=== PATIENT | male | born 2000 | race Caucasian/White ===

== ENCOUNTER 2019-05-06 04:59 | Emergency (ER) | payer OTHER ==
[~2019-05-06] VITALS: Ht 188 cm; Wt 68.0 kg
[2019-05-06] MEDS ORDERED: SODIUM CHLORIDE 0.9% 1,000 ML IV ONE (05:33)
[2019-05-06] MEDS ORDERED: BACITRACIN ZINC OINT UDPKT TOP ONE (05:45)
[2019-05-06] MEDS ORDERED: TETANUS, DIPHTHERIA, PERTUSSIS VAC/PF 0.5ML (>7YR OLD) IM ONE (05:45)
[2019-05-06 05:46] LABS: BASOPHILS % 0.6 % (0.0-2.0); HEMATOCRIT. 41.3 % (42.0-52.0); HEMOGLOBIN. 14.5 g/dL (14.0-18.0); LYMPHOCYTES % 9.9 % (20.0-50.0); MEAN CORPUSCULAR VOLUME 93.9 fL (80.0-94.0); MEAN PLATELET VOLUME 7.2 fl (7.4-10.4); NEUTROPHILS % 81.5 % (40.0-76.0); PLATELET 203 x1000/uL (130-400); RED BLOOD CELL COUNT 4.39 mill/uL (4.7-6.1); RED CELL DISTRIBUTION WIDTH 12.7 % (11.6-14.6)
[2019-05-06 05:57] LABS: CHLORIDE 106 mEq/L (98-107)
[2019-05-06 06:06] LABS: ETHANOL BLOOD < 10 mg/dL
[2019-05-06 06:09] LABS: CREATINE KINASE 232 IU/L (39-308)
[2019-05-06 06:18] LABS: CARBAMAZEPINE < 0.5 ug/mL (4-12); PHENOBARBITAL < 2.1 ug/mL (15.0-40.0); VALPROIC ACID < 3.0 ug/mL (50-100)
[2019-05-06 07:35] VITALS: BP 120/78
== END 2019-05-06 07:50 | disposition home or self-care (01) ==
LOC: ER 04:59
DX: R56.9 Unspecified convulsions (principal); F17.210 Nicotine dependence, cigarettes, uncomplicated; Z23 Encounter for immunization
CPT/HCPCS: 36415; 70450; 71045; 80053; 80156; 80165; 80184; 80185; 80320; 82550; 82962; 84443; 85025; 90471; 90715; 93005; 99284; 99406; J7030; G0480